=== PATIENT | male | born 2005 | race Caucasian/White ===

== ENCOUNTER 2025-01-30 16:45 | Emergency (ER) | payer OTHER, SELFPAY ==
--- NOTE | ~2025-01-30 | XR_ITS ---
EXAMINATION: XR chest 2V, 01/30/2025 17:09 [facility] HISTORY: cough x2 months COMPARISON: No comparisons available. Technique: 2 views obtained. Findings: The lungs are clear, no effusion. No pneumothorax. Heart is normal size. Mediastinal and hilar contours are within normal limits. Bony thorax no acute abnormality. Impression: No acute cardiopulmonary abnormality. Reviewed, dictated and finalized at location [facility] Impression: No acute cardiopulmonary abnormality.
[2025-01-30 17:11] VITALS: BP 129/84; PULSE 82; RESP 18; TEMP 36.7; O2SAT 100
--- NOTE | 2025-01-30 17:14 | ED_ITS ---
HPI - URI/Sore Throat General Chief Complaint: Upper Respiratory Infection Stated Complaint: cough Time Seen by Provider: 01/30/25 17:06 Source: patient and RN notes reviewed Mode of arrival: ambulatory Limitations: no limitations History of Present Illness HPI Narrative: 20-year-old male patient presents today complaining of an 8 week history of cough that is worse at night, worse over the last month with occasional shortness of breath at night as well. Denies congestion, rhinorrhea, fever, sore throat, or any additional symptoms. He has been taking allergy medicine and a decongestant with some relief. States brother is sick at home with bronchitis. Related Data Allergies Allergy/AdvReac Type Severity Reaction Status Date / Time No Known Allergies Allergy Verified 01/30/25 17:13 [facility] Comments At time of signature, I have reviewed and agree with nursing past medical, surgical, social and family history unless otherwise noted. Please see nursing chart for further information. There is no relevant family history pertinent to the presenting complaint Exam Narrative: GENERAL: Well-appearing, well-nourished, and in no acute distress. HEAD: Normocephalic, atraumatic. EYES: EOMI. No redness or drainage. Conjunctivae normal. ENT: Mucous membranes pink and moist. Nares clear. No rhinorrhea. TMs normal bilaterally. Throat normal. Small amount of white postnasal drainage. Uvula midline. NECK: Normal AROM. Supple. No lymphadenopathy. CHEST: No respiratory distress. Clear to auscultation. HEART: Regular rate and rhythm. No murmur appreciated. EXTREMITIES: Normal range of motion. No edema. SKIN: Warm, dry, no rash. Capillary refill normal. Normal skin turgor. NEURO: No focal deficits. Alert and oriented x3. Gait steady. PSYCH: Normal affect. No signs of depression or anxiety. Course Course Level of Care: Express Care Visit Vital Signs Vital signs: Vital Signs Temperature 98.1 F 01/30/25 17:11 Pulse Rate 82 01/30/25 17:11 Respiratory Rate 18 01/30/25 17:11 Blood Pressure 129/84 01/30/25 17:11 Pulse Oximetry 100 01/30/25 17:11 Oxygen Delivery Room Air 01/30/25 17:11 Temperature 98.1 F 01/30/25 17:11 Pulse Rate 82 01/30/25 17:11 Respiratory Rate 18 01/30/25 17:11 Blood Pressure 129/84 01/30/25 17:11 Pulse Oximetry 100 01/30/25 17:11 Oxygen Delivery Room Air 01/30/25 17:11 Reviewed MDM - URI/Sore Throat MDM Narrative Medical decision making narrative: 20-year-old male patient presents today complaining of an 8 week history of cough that is worse at night, worse over the last month with occasional shortness of breath at night as well. Denies congestion, rhinorrhea, fever, sore throat, or any additional symptoms. He has been taking allergy medicine and a decongestant with some relief. States brother is sick at home with bronchitis. Patient's physical exam is grossly normal with some small white postnasal drainage. Chest x-ray negative. Patient will be treated with burst of prednisone hand some Tessalon Perles for bronchitis, likely post infectious. Patient agrees with plan. Vital signs stable. Anticipatory guidance given Differential Diagnosis Differential diagnosis: Likely sinusitis, viral infection, bronchitis and other (Pneumonia) Imaging Data Radiologist's impression: ITS Impressions Chest X-Ray 01/30/25 17:45 Impression: No acute cardiopulmonary abnormality. Critical Care Time Critical Care Time Critical Care Time: No Discharge Plan Discharge Clinical Impression: Bronchitis Patient Disposition: Home Condition: Stable Instructions: Acute Bronchitis (ED) Additional Instructions: Please take the prednisone and Tessalon Perles as prescribed. Rest and stay hydrated. Follow-up with your PCP in 3 days if symptoms are not improving. Patient Language: [place] Prescriptions: New benzonatate 200 mg capsule 200 mg PO TID PRN (Reason: cough) Qty: 20 0RF prednisone 50 mg tablet 50 mg PO DAILY 5 Days Qty: 5 0RF Follow-up/Referrals: UNKNOWN,DOCTOR [Primary Care Provider] Time of Disposition: 17:51
== END 2025-01-30 17:54 | disposition home or self-care (01) ==
PROVIDERS: Emergency Provider Nurse Practitioner
DX: J40 Bronchitis, not specified as acute or chronic (principal)
CPT/HCPCS: 71046; 99203; G0463